=== PATIENT | male | born 1975 | race Hispanic/Latino ===

== ENCOUNTER 2019-09-23 10:23 | Day surgery (SDC) | payer OTHER ==
[2019-09-19 16:53] LABS: Absolute Lymphocytes (CBC) 1.6 K/uL (0.7-4.9); Basophils % 0.5 % (0-1.3); Hematocrit 41.7 % (39.6-49.0); Lymphocytes % 26.5 % (15.3-44.8); RBC Red Blood Cell Count 4.49 M/uL (4.33-5.43)
--- NOTE | 2019-09-19 16:59 | RAD REPORT ---
EXAM DESCRIPTION: RAD - Chest Pa And Lat (2 Views) - 09/19/2019 4:47 pm CLINICAL HISTORY: preop, patient pending cholecystectomy COMPARISON: None TECHNIQUE: Frontal and lateral views of the chest were obtained. FINDINGS: The lungs are clear. Hilar regions are not outside of range of normal. Heart size is norm al and central vasculature is within normal limits. No pleural effusion or pneumothorax seen. No ac koi bony finding noted. No aortic abnormality. IMPRESSION: No acute cardiopulmonary process.
[2019-09-19 17:44] LABS: ALT/SGPT 47 U/L (12-78); AST/SGOT 25 U/L (15-37); Albumin 3.4 g/dL (3.4-5.0); Alkaline Phosphatase 88 U/L (45-117); Amylase Level 101 U/L (25-115); Bilirubin Direct < 0.1 mg/dL (0-0.2); Bilirubin Total 0.2 mg/dL (0.2-1.0); Lipase 283 U/L (73-393); Protein, Total 7.7 g/dL (6.4-8.2)
--- NOTE | 2019-09-20 07:30 | EKG ---
Test Date: 2019-09-19 Test Time: 15:26:36 Radio Performer: JOSE MEASUREMENT RESULTS: Intervals: Rate: 66 [place]: 154 QRSD: 80 QT: 394 QTc: 413 [place]: P: 31 [place]: 154 QRS: 53 T: 22 INTERPRETIVE STATEMENTS: Normal sinus rhythm Nonspecific T wave abnormality Abnormal ECG No previous ECG available for comparison Electronically Signed On 09-20-19 07:27:52 CDT by Jared Najera
[2019-09-23] MEDS ORDERED: CEFOXITIN/SWI 1gm 1 GM/10 ML SYR ONE (11:11)
[2019-09-23] MEDS ORDERED: Ringers Lactate 1,000 ML IV ONE (11:11)
[2019-09-23] MEDS ORDERED: BUPIVACAINE 0.5% PF 10 ML VIAL ONE (12:51)
[2019-09-23] MEDS ORDERED: propofoL 200 MG/20 ML VIAL IV ONE (13:02)
[2019-09-23] MEDS ORDERED: LIDOCAINE 2% MPF 5 ML VIAL ONE (13:03)
[2019-09-23] MEDS ORDERED: FENTANYL CITR 100 MCG/2 ML ONE ×2 (13:03→13:41)
[2019-09-23] MEDS ORDERED: MIDAZOLAM HCL 2 MG/2 ML INJ ONE (13:03)
[2019-09-23] MEDS ORDERED: ROCURONIUM 50 MG/5 ML VIAL IV ONE (13:03)
[2019-09-23] MEDS ORDERED: dexAMETHasone 10 MG/ML VIAL ONE (13:03)
[2019-09-23] MEDS ORDERED: GLYCOPYRROLATE 0.2 MG/ML SYR ONE (14:18)
[2019-09-23] MEDS ORDERED: NEOSTIGMINE 1 MG/ML -5 ML ONE (14:19)
[2019-09-23] MEDS ORDERED: KETOROLAC 30 MG/ML INJ ONE (14:19)
[2019-09-23] MEDS ORDERED: ONDANSETRON 4 MG/2 ML VIAL ONE (14:19)
--- NOTE | 2019-09-23 14:21 | P.BOP ---
Preoperative diagnosis: acute cholecystitis, symptomatic cholelithiasis Postoperative diagnosis: same Primary procedure: Laparoscopic cholecystectomy Estimated blood loss: <10cc Specimen: gb Findings: as above, thick distended gallbladder. Anesthesia: General Complications: None Transferred to: Recovery Room Condition: Good
[2019-09-23] MEDS: HYDROMORPHONE HCL 1 MG/ML INJ ONE ×4 (14:41→14:56)
[2019-09-23 15:31] VITALS: BP 123/72; TEMP 98; O2SAT 95
[2019-09-23] MEDS ORDERED: CODEINE 30MG/APAP 300MG TAB ONE (15:46)
--- NOTE | 2019-09-23 23:18 | OP ---
Date of Procedure: 09/23/2019 Surgeon: Pk Campoverde MD Diagnosis: Acute cholecystitis, symptomatic cholelithiasis. Postoperative Diagnoses: Acute cholecystitis, symptomatic cholelithiasis. Procedure: Laparoscopic cholecystectomy. Estimated Blood Loss: Less than 10 mL. Anesthesia: General plus local. Indications: This is the case of a 44-year-old patient, comes to us with acute cholecystitis, sympto matic cholelithiasis. Fully explained the benefits, alternatives, and risks of laparoscopic, possibl e open cholecystectomy, which include but are not limited to infection, bleeding, damage to adjacent structures, anesthesia complication, choledocholithiasis, bile leak, pancreatitis, MS, and even . He also understands this may not relieve his symptoms. He might need more than one surgical inter vention. He understood, signed a consent. Description Of Procedure: Patient was brought to the operating room, placed in supine position. Ane sthesia was given without complication. Abdominal area was prepped and draped in a sterile fashion. Marcaine 0.5% was injected for local anesthetic, followed by sharp incision of the skin in the epiga stric area. Patient has a previous umbilical hernia repair with mesh. So, we are trying to avoid th at area we can. Once making epigastric incision, incision was carried down to fascia, which was open ed under direct vision. Vicryl #1 placed inside the fascia. Emily trocar was carefully introduced. Pneumoperitoneum was obtained. Carefully camera was introduced. Then, we find area on the lower a bdomen and we can put a 5 mm camera and we did under direct visualization. We switched the camera to that port and we did 2 more 5 mm trocar in the right upper quadrant under direct visualization. Thi s allowed me to put a grasper in the fundus of the gallbladder, another grasper in the infundibulum, retracting the gallbladder in the inferolateral fashion exposing the triangle of Calot, obtaining cri tical view of safety. Cystic duct and cystic artery were cleared isolated free circumferentially and a connection between those and the gallbladder was clearly identified. I proceeded to ligate those by using at least 3 clips proximal, 1 clip distal, ligation in middle. Same was done with the cystic artery. The gallbladder was removed from liver using Bovie cauterizer and removed from abdominal ca vity using EndoCatch through the umbilical incision. Area was inspected once again. Complete hemost asis was obtained. Clips were intact. No bile leak. No bleeding. Gallbladder fossa with no bile l eak, no bleeding. At that moment, I proceeded to remove the trocars under direct vision. Deflated t he pneumoperitoneum. Closed the fascia with #1 Vicryl. Irrigated subcutaneous closed that with 3-0 chromic and skin in a subcuticular fashion with 3-0 chromic with Steri-Strip on top. Sponge count an d instrument counts were correct. Patient tolerated the procedure well. Patient was sent to recover y in stable condition. FELA/AYAKA Voice ID: [id number] Report ID: [id number]
--- NOTE | 2019-09-23 23:18 | DS ---
Date of Discharge: 09/23/2019 Diagnosis: Acute cholecystitis, symptomatic cholelithiasis. Procedure: Laparoscopic cholecystectomy. Disposition: Home. Activity: As tolerated. No heavy lifting. Followup: Follow up in my office in 1 week. Call for appointment [phone]. Discharge Instructions: Keep area dry for 48 hours, then may shower. Keep Steri-Strips intact. Medications: Include Bactrim-DS b.i.d. and Tylenol 500 b.i.d. FELA/AYAKA Voice ID: [id number] Report ID: [id number]
== END 2019-09-23 16:20 | disposition home or self-care (01) ==
LOC: OR 10:23
PROVIDERS: ATTEND Surgery
PROC: 0FT44ZZ Resection of Gallbladder, Percutaneous Endoscopic Approach (ICD-10-PCS; principal; 2019-09-23 13:30)
DX: K80.12 Calculus of gallbladder with acute and chronic cholecystitis without obstruction (principal); K21.9 Gastro-esophageal reflux disease without esophagitis; Z82.49 Family history of ischemic heart disease and other diseases of the circulatory system; Z80.9 Family history of malignant neoplasm, unspecified; Z83.3 Family history of diabetes mellitus
CPT/HCPCS: 93005; 85025; 80048; 36415; 82150; 80076; 88304; 83690; 71046; 47562; J2704; J2250; J3010 ×2; J1100; J1170 ×2; J2710; J7120; J2405